=== PATIENT | male | born 1955 | race Caucasian/White ===

== ENCOUNTER 2016-07-09 14:43 | Observation (INO) | payer BC ==
[2016-07-09] MEDS ORDERED: DEPAKOTE ER500 M1 PO (15:06)
[2016-07-09] MEDS ORDERED: SAPHRIS5 M1 PO (15:06)
[2016-07-09] MEDS ORDERED: MELOXICAM7.5 M1 PO (15:08)
[2016-07-09] MEDS ORDERED: HYDROCODON-ACE1 EA17 PO (15:09)
[2016-07-09] MEDS ORDERED: ZOCOR40 M1 PO (15:09)
[2016-07-09] MEDS ORDERED: OMEPRAZOLE20 M3 PO (15:10)
[2016-07-09] MEDS ORDERED: PROVENTIL HFA6.7 G1 INH (15:11)
[2016-07-09] MEDS ORDERED: OLANZAPINE FLU PO (15:11)
[2016-07-10 05:02] LABS: BASO % 0.6 % (0-2); EOS % 1.9 % (0-7); EOSINOPHIL ABSOLUTE COUNT 0.1 tho/cmm (0.0-0.7); HGB-HEMOGLOBIN 14.5 gm/dl (13.5-17.0); IMMATURE GRANULOCYTES ABSOLUTE 0.01 tho/cmm (0-0.03); IMMATURE GRANULOCYTES PERCENT 0.1 % (0-0.3); LYMPH % 41.3 % (20-45); LYMPH ABSOLUTE COUNT 2.9 tho/cmm (0.8-4.5); MCH (MEAN CORPUSCULAR HGB) 31.9 pg (28.0-32.0); MCHC MEAN CORPUSCULAR HGB CONC 34.5 % (32.0-36.0); MCV (MEAN CELL VOLUME) 92.3 fl (82.0-96.0); MEAN PLATELET VOLUME 10.5 cmc (9.4-12.4); MONO % 8.2 % (0-12); MONOCYTE ABSOLUTE COUNT 0.6 tho/cmm (0.0-1.2); NEUTROPHIL ABSOLUTE COUNT 3.3 tho/cmm (1.6-8.0); NEUTROPHIL-AUTOMATED 3.3 tho/cmm (1.6-8.0); NEUTROPHILS % 47.9 % (40-80); PLATELET COUNT 199 tho/cmm (150-450); RED BLOOD COUNT 4.55 mil/cmm (4.40-5.70); RED CELL DISTRIBUTION WIDTH 13.2 % (12.4-16.4); WHITE BLOOD COUNT 6.9 tho/cmm (4.0-10.0)
[2016-07-10 05:29] LABS: ALBUMIN 2.7 g/dl (3.5-5.0); ANION GAP 10 mmol/L (0-20); BLOOD UREA NITROGEN 18 mg/dl (6-24); CALCIUM 7.9 mg/dl (8.5-10.5); CARBON DIOXIDE-VENOUS 26 mmol/L (22-32); CHLORIDE 109 mmol/l (96-110); GLUCOSE 94 mg/dL (70-110); LIPASE 97 U/L (73-393); POTASSIUM 4.2 mmol/L (3.7-5.1); SODIUM 141 mmol/L (135-145)
[2016-07-10 05:34] LABS: ALKALINE PHOSPHATASE 40 U/L (33-138); ALT/SGPT 19 U/L (12-78); AST/SGOT 13 U/L (10-40); BILIRUBIN,TOTAL 0.7 mg/dl (0.0-1.5); CHOLESTEROL 139 mg/dl (120-200); CREATININE 0.76 mg/dl (0.60-1.30); HDL CHOLESTEROL 59 mg/dl (40-60); LDL CHOLESTEROL 52 mg/dl (0-99); TRIGLYCERIDES 143 mg/dl (<149); VLDL 29 mg/dl (0-30); eGFR VALUE FOR BLACK >90 mL/Min
[2016-07-11] MEDS ORDERED: CARAFATE1 G2 PO (10:39)
[2016-11-09] MEDS ORDERED: ALEVE220 M4 PO (15:45)
[2016-11-13] MEDS ORDERED: LEVAQUIN750 M1 PO (15:01)
[2016-11-13] MEDS ORDERED: MUCINEX600 M1 PO (15:09)
[2016-11-13] MEDS ORDERED: PREDNISONE10 M1 PO (15:13)
[2016-11-13] MEDS ORDERED: IPRAT-ALBUT 0.5-3 ML AERO NEB (15:15)
== END 2016-07-11 13:20 ==
LOC: 5WE 14:43
PROVIDERS: ADMIT Internal Medicine
DX: R10.13 Epigastric pain (principal); F31.9 Bipolar disorder, unspecified; M06.9 Rheumatoid arthritis, unspecified; E78.5 Hyperlipidemia, unspecified; J45.909 Unspecified asthma, uncomplicated; F17.210 Nicotine dependence, cigarettes, uncomplicated; Z79.899 Other long term (current) drug therapy; Z98.890 Other specified postprocedural states
CPT/HCPCS: A9537; C9113; G0378; J2270